=== PATIENT | male | born 1950 | race African-American/Black ===

== ENCOUNTER 2017-04-13 06:17 | Emergency (ER) | payer MEDICAID ==
[~2017-04-13] VITALS: Ht 172.7 cm; Wt 69.0 kg
[~2017-04-13 06:17] MED LIST: AMLO10TA80 PO; CHOL500010 PO; HYDR25TA PO; LISI10TA5 PO
[2017-04-13] MEDS ORDERED: SODIUM CHLORIDE 0.9% 1,000 ML IV ONE (06:43)
[2017-04-13] MEDS ORDERED: LIDOCAINE HCL 1% 20ML VIAL (Pyxis) INJ MC ONE (06:45)
[2017-04-13 07:00] LABS: HEMOGLOBIN. 14.8 g/dL (14.0-18.0); MEAN CORPUSCULAR HEMOGLOBIN 26.3 pg (28.0-32.0); MEAN CORPUSCULAR VOLUME 81.6 fL (80.0-94.0); MEAN PLATELET VOLUME 7.1 fl (7.4-10.4); PLATELET 347 x1000/uL (130-400); RED BLOOD CELL COUNT 5.63 mill/uL (4.7-6.1); RED CELL DISTRIBUTION WIDTH 14.7 % (11.6-14.6)
[2017-04-13 07:14] LABS: CARBON DIOXIDE 27 mEq/L (21-32); CHLORIDE 103 mEq/L (98-107); ETHANOL BLOOD 143 mg/dL
[2017-04-13 07:27] LABS: PLATELET ESTIMATE NORMAL
[2017-04-13 10:39] VITALS: BP 132/84
== END 2017-04-13 11:05 | disposition home or self-care (01) ==
LOC: ER 06:17
DX: L02.413 Cutaneous abscess of right upper limb (principal); F10.129 Alcohol abuse with intoxication, unspecified; F17.200 Nicotine dependence, unspecified, uncomplicated; F12.10 Cannabis abuse, uncomplicated
CPT/HCPCS: 10060; 36415; 73130; 80053; 85025; 96360; 99285; G0482; J3490; J7030; Z7610

== ENCOUNTER 2017-05-28 10:31 | Emergency (ER) | payer MEDICAID ==
[~2017-05-28] VITALS: Ht 172.7 cm; Wt 66.0 kg
[2017-05-28] MEDS ORDERED: HYDROCODONE/ACETAMINOPHEN 5/325MG TABLET PO ONE (13:00)
[2017-05-28] MEDS ORDERED: LIDOCAINE HCL/EPINEPHRINE 1%-EPI 1:100,000 20 ML VIAL INFIL ONE (13:00)
[2017-05-28] MEDS ORDERED: SULFAMETHOXAZOLE/TRIMETHOPRIM 800/160MG TABLET PO ONE (13:00)
[2017-05-28] MEDS ORDERED: CEPHALEXIN 500MG CAPSULE PO ONE (13:00)
[2017-05-28] MEDS ORDERED: BACITRACIN ZINC OINT UDPKT TOP ONE (13:00)
[2017-05-28 13:17] VITALS: BP 105/81
[2017-05-28] MEDS ORDERED: LIDOCAINE 1%/EPI 1:200,000 10 ML VIAL IJ ONE (13:21)
== END 2017-05-28 14:43 | disposition home or self-care (01) ==
LOC: ER 10:59
DX: L05.01 Pilonidal cyst with abscess (principal); F17.200 Nicotine dependence, unspecified, uncomplicated
CPT/HCPCS: 10080; 99284; X7700; Z7610; J3490